=== PATIENT | male | born 1965 | race Caucasian/White ===

== ENCOUNTER 2016-08-31 05:30 | Inpatient (IN) | payer OTHER ==
[~2016-08-31] VITALS: Ht 170.2 cm; Wt 94.9 kg
[2016-08-31] MEDS ORDERED: NS IV 1000 ML 1,000 ML IV ONE (06:12)
[2016-08-31] MEDS ORDERED: KETOROLAC 30 MG/ML VIAL IVP ONE (06:30)
[2016-08-31] MEDS ORDERED: PIPERACILLIN SODIUM/TAZOBACTAM 4.5 GM in NS (IVPB) 100 ML IV ONE (06:30)
[2016-08-31] MEDS ORDERED: VANCOMYCIN INJECTION 1,000 MG in NS (IVPB) 250 ML IV ONE (06:30)
[2016-08-31 06:31] LABS: BASOPHILS # (AUTO) 0.1 10^3/uL (0.0-0.1); BASOPHILS % (AUTO) 1 % (0-10); EOSINOPHILS # (AUTO) 0.4 10^3/uL (0.0-0.3); EOSINOPHILS % (AUTO) 2 % (0-10); LYMPHOCYTES # (AUTO) 1.6 X 10^3 (1.0-4.0); LYMPHOCYTES % (AUTO) 9 % (12-44); MEAN CORPUSCULAR HEMOGLOBIN 30 PG (25-34); MEAN CORPUSCULAR HGB CONC 34 G/DL (32-36); MEAN CORPUSCULAR VOLUME 90 FL (80-99); MEAN PLATELET VOLUME 9.1 FL (7.4-10.4); MONOCYTES # (AUTO) 2.2 X 10^3 (0.0-1.0); MONOCYTES % (AUTO) 12 % (0-12); NEUTROPHILS # (AUTO) 14.1 X 10^3 (1.8-7.8); NEUTROPHILS % (AUTO) 77 % (42-75); PLATELET COUNT 416 10^3/uL (130-400); RED BLOOD COUNT 4.64 10^6/uL (4.35-5.85); RED CELL DISTRIBUTION WIDTH 14.4 % (10.0-14.5); WHITE BLOOD COUNT 18.3 10^3/uL (4.3-11.0)
--- NOTE | 2016-08-31 06:37 | ED General ---
General Chief Complaint: Skin/Wound Problems Stated Complaint: LEFT ARM SWOLLEN,PAINFUL Nursing Triage Note: Pt reports pain and swelling to R hand and arm starting last night Nursing Sepsis Screen: No Definite Risk Source of Information: Patient Exam Limitations: No Limitations History of Present Illness Time Seen by Provider: 06:10 Initial Comments This 50-year-old man presents to the emergency room with complaints of right and left forearm abscesses after injecting with methamphetamines. In addition his right hand and wrist are markedly edematous, erythematous, and painful. He is afebrile and not tachycardic. He denies any injection into the hand or wrist. He has a large abscess on both the right forearm and left forearm. He denies any other health problems. He has near complete loss of range of motion in his right wrist and hand. He appears to be slightly agitated and still under the influence of methamphetamines. Allergies and Home Medications Allergies Coded Allergies: No Known Drug Allergies (Unverified , 08/31/16) Home Medications No Active Prescriptions or Reported Meds Constitutional: no symptoms reported EENTM: no symptoms reported Respiratory: no symptoms reported Cardiovascular: no symptoms reported Gastrointestinal: no symptoms reported Genitourinary: no symptoms reported Musculoskeletal: see HPI, joint pain, joint swelling Skin: see HPI Psychiatric/Neurological: See HPI Hematologic/Lymphatic: No Symptoms Reported Past Phbpdfb-Ngtgko-Hpuqgc Hx Patient Social History Alcohol Use: Rarely Uses Recreational Drug Use: Yes (meth ) Smoking Status: Current Everyday Smoker Type Used: Cigarettes Recent Foreign Travel: No Contact w/Someone Who Travel: No Recent Infectious Disease Expo: No Recent Hopitalizations: No Seasonal Allergies Seasonal Allergies: No Surgeries HX Surgeries: Yes Surgeries: Gallbladder Respiratory Hx Respiratory Disorders: No Cardiovascular Hx Cardiac Disorders: No Neurological Hx Neurological Disorders: No Reproductive System Hx Reproductive Disorders: No Genitourinary Hx Genitourinary Disorders: No Gastrointestinal Hx Gastrointestinal Disorders: No Musculoskeletal Hx Musculoskeletal Disorders: No Endocrine Hx Endocrine Disorders: No HEENT HX ENT Disorders: No Cancer Hx Cancer: No Psychosocial Hx Psychiatric Problems: No Integumentary HX Skin/Integumentary Disorder: No Blood Transfusions Hx Blood Disorders: No Physical Exam Vital Signs Vital Sign - Last 12Hours 08/31/16 05:52 Temp 98.0 Pulse 88 Resp 18 B/P (MAP) 0/0 Pulse Ox 99 O2 Delivery Room Air Capillary Refill : Less Than 3 Seconds General Appearance: WD/WN, Mild Distress HEENT: PERRL/EOMI, Normal ENT Inspection Neck: Normal Inspection Respiratory: Lungs Clear, Normal Breath Sounds, No Accessory Muscle Use, No Respiratory Distress Cardiovascular: Regular Rate, Rhythm, No Edema, No Murmur Gastrointestinal: Non Tender, Soft Extremity: Other (large abscesses on both forearms. Right hand and wrist are markedly edematous, erythematous, and tender. There is substantial loss of range of motion in the right wrist and hand. He retains sensation and brisk capillary refill in his fingers. 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 Patient was pretreated with IV fentanyl. A 1 cm incision was made over the right forearm abscess. A significant amount of purulent material was expressed. A small quarter-inch wick of packing was placed. Drainage was sent for culture. I&D #2: Blade Size: 11 Progress Left forearm abscess was prepped with chlorhexidine wipes. Patient was pretreated with IV fentanyl. A new 1.5 cm incision was made over the abscess. A scant amount of watery but purulent drainage was expressed. Culture was collected. Wound was dressed. Progress/Results/Core Measures Results/Orders Lab Results Laboratory Tests Test 08/31/16 10:20 09/01/16 06:43 Range/Units Urine Color YELLOW Urine Clarity CLEAR Urine pH 5 5-9 Urine Specific [place] 1.015 L 1.016-1.022 Urine Protein NEGATIVE NEGATIVE Urine Glucose (UA) NEGATIVE NEGATIVE Urine Ketones NEGATIVE NEGATIVE Urine Nitrite NEGATIVE NEGATIVE Urine Bilirubin NEGATIVE NEGATIVE Urine Urobilinogen NORMAL NORMAL MG/DL Urine Leukocyte Esterase NEGATIVE NEGATIVE Urine RBC (Auto) NEGATIVE NEGATIVE Urine Opiates Screen NEGATIVE NEGATIVE Urine Oxycodone Screen NEGATIVE NEGATIVE Urine Methadone Screen NEGATIVE NEGATIVE Urine Propoxyphene Screen NEGATIVE NEGATIVE Urine Barbiturates Screen NEGATIVE NEGATIVE Ur Tricyclic Antidepressants Screen NEGATIVE NEGATIVE Urine Phencyclidine Screen NEGATIVE NEGATIVE Urine Amphetamines Screen POSITIVE H NEGATIVE Urine Methamphetamines Screen POSITIVE H NEGATIVE Urine Benzodiazepines Screen NEGATIVE NEGATIVE Urine Cocaine Screen NEGATIVE NEGATIVE Urine Cannabinoids Screen NEGATIVE NEGATIVE White Blood Count 11.8 H 4.3-11.0 10^3/uL Red Blood Count 4.72 4.35-5.85 10^6/uL Hemoglobin 14.2 13.3-17.7 G/DL Hematocrit 43 40-54 % Mean Corpuscular Volume 92 80-99 FL Mean Corpuscular Hemoglobin 30 25-34 PG Mean Corpuscular Hemoglobin Concent 33 32-36 G/DL Red Cell Distribution Width 13.3 10.0-14.5 % Platelet Count 363 130-400 10^3/uL Mean Platelet Volume 9.3 7.4-10.4 FL Neutrophils (%) (Auto) 71 42-75 % Lymphocytes (%) (Auto) 14 12-44 % Monocytes (%) (Auto) 12 0-12 % Eosinophils (%) (Auto) 3 0-10 % Basophils (%) (Auto) 1 0-10 % Neutrophils # (Auto) 8.3 H 1.8-7.8 X 10^3 Lymphocytes # (Auto) 1.7 1.0-4.0 X 10^3 Monocytes # (Auto) 1.4 H 0.0-1.0 X 10^3 Eosinophils # (Auto) 0.3 0.0-0.3 10^3/uL Basophils # (Auto) 0.1 0.0-0.1 10^3/uL Sodium Level 137 135-145 MMOL/L Potassium Level 4.0 3.6-5.0 MMOL/L Chloride Level 106 98-107 MMOL/L Carbon Dioxide Level 23 21-32 MMOL/L Anion Gap 8 5-14 MMOL/L Blood Urea Nitrogen 7 7-18 MG/DL Creatinine 0.72 0.60-1.30 MG/DL Estimat Glomerular Filtration Rate > 60 BUN/Creatinine Ratio 10 Glucose Level 105 70-105 MG/DL Calcium Level 8.4 L 8.5-10.1 MG/DL Total Bilirubin 0.7 0.1-1.0 MG/DL Aspartate Amino Transf (AST/SGOT) 22 5-34 U/L Alanine Aminotransferase (ALT/SGPT) 23 0-55 U/L Alkaline Phosphatase 125 40-136 U/L Total Protein 6.6 6.4-8.2 G/DL Albumin 3.4 3.2-4.5 G/DL Micro Results Microbiology 08/31/16 Gram Stain - Final, Resulted 08/31/16 Wound Culture - Preliminary, Resulted 08/31/16 Gram Stain - Final, Resulted 08/31/16 Wound Culture - Preliminary, Resulted My Orders Orders - ANUP QUINN MD Wound Culture (08/31/16 07:54) Wound Culture (08/31/16 07:54) Iohexol Injection (Omnipaque 350 Mg/Ml 1 (08/31/16 08:15) Ns (Ivpb) (Sodium Chloride 0.9% Ivpb Bag (08/31/16 08:15) Piperacillin Sodium/Tazobactam (Zosyn Vi (08/31/16 09:03) Medications Given in ED Vital Signs/I&O Blood Pressure Mean: 0 Progress Note : Time: 06:43 Progress Note Patient has been seen and examined. Vancomycin and Zosyn will be started after blood cultures are completed by lab. Toradol was ordered for pain. IV fluids will be administered along with antibiotics. After review of creatinine, I plan to order a CT scan of the right upper extremity to rule out further abscesses in the hand and wrist. Abscesses on the forearms will need incision and drainage. Diagnostic Imaging Diagonstic Imaging: CT Plain Films/CT/US/NM/MRI: other (Right upper extremity) Comments CT of the right upper extremity viewed by me and report reviewed. See report below: NAME: WILY FERNANDES [facility] REC#: [id number] PT STATUS: REG ER : 1965 PHYSICIAN: ANUP QUINN MD ADMIT DATE: 08/31/16/ER Draft Date of Exam:08/31/16 CT EXTREMITY UPPER RIGHT W PROCEDURE: CT right upper extremity with contrast. TECHNIQUE: Axial images were obtained through the right upper extremity after intravenous contrast and reformatted into coronal and sagittal oblique planes. INDICATION: Right hand and arm swelling. No known injury. COMPARISON: None available. FINDINGS: The right subclavian, axillary, brachial, radial and ulnar arteries are patent. The venous structure patency cannot be assessed on this examination to the base of contrast bolus timing. Ultrasound would be better suited to evaluate the venous structures. There is no fracture. No osseous erosive changes/cortical destruction to suggest osteomyelitis by CT. Please note that CT is insensitive for early changes of osteomyelitis. At the level of the proximal one third of the forearm, there is a subcutaneous low-attenuation lesion measuring 1.0 x 1.9 cm in the radial soft tissues. Underlying musculature is normal in attenuation. There is diffuse non-masslike subcutaneous edema and swelling involving the dorsal aspect of the hand and wrist. There are a few mildly enlarged right axillary lymph nodes, largest measuring 2.0 x 1.5 cm, which are likely reactive in nature. Visualized aspects of the right lung are clear. IMPRESSION: 1. There is nonspecific soft tissue swelling and subcutaneous edema in the dorsal aspect of the hand and wrist. In addition in the proximal radial aspect of the forearm, there is a focal subcutaneous ovoid hypodense lesion which could represent fluid collection. These findings are nonspecific and are likely due to an infectious or inflammatory process. Targeted ultrasound of the hypoechoic focus in the proximal forearm could be performed to assess if this has fluid within it and may be amenable to drainage. 2. No CT findings of osteomyelitis. In the absence of open dermal wound, osteomyelitis is extremely rare in adult patients. However, if there is high clinical suspicion for osteomyelitis, a focal MRI in the region of open dermal wound is suggested as it is more sensitive to evaluate early changes of osteomyelitis. 3. A few mildly enlarged right axillary lymph nodes are likely reactive in nature. Dictated on workstation # [id number] Dict: 08/31/16 0812 Trans: 08/31/16 0824 [facility] [id number] Interpreted by: LENARD CHAVES MD Departure Communication Time/Spoke to Admitting Phy: 08:[address] Curran was notified of admission. She agrees with vancomycin and Zosyn. She also agrees with surgical consult. Time/Spoke to Consulting Physi: 08:45 Communication/Consulting Dr. Cardenas was notified and case reviewed. He is agreeable to consultation. Patient is at high risk for compartment syndrome and should be monitored by a surgeon. Impression Impression: Primary Impression: Cellulitis of right upper extremity Additional Impressions: Cellulitis of left upper extremity Abscess of right upper extremity Abscess of left upper extremity Methamphetamine abuse Disposition: ADMITTED INPATIENT Condition: Improved Decision to Admit Reason: Admit from ER (General) Decision to Admit/Date: Aug 31, 2016 Time/Decision to Admit Time: 06:20 Departure-Patient Inst. Referrals: NO,LOCAL PHYSICIAN (PCP/Family) Primary Care Physician Scripts No Active Prescriptions or Reported Meds ANUP QUINN MD Aug 31, 2016 06:37
[2016-08-31 06:45] LABS: ANISOCYTOSIS SLIGHT; BAND NEUTROPHILS 0 %; BASOPHILS % (MANUAL) 1 %; EOSINOPHILS % (MANUAL) 3 %; LYMPHOCYTES % (MANUAL) 8 %; NEUTROPHILS % (MANUAL) 80 %
[2016-08-31] MEDS ORDERED: fentaNYL INJECTION 100 MCG/2 ML AMP IVP ONE (07:00)
[2016-08-31 07:03] LABS: ALANINE AMINOTRANSFERASE 20 U/L (0-55); ALBUMIN 3.7 G/DL (3.2-4.5); ANION GAP 11 MMOL/L (5-14); ASPARTATE AMINO TRANSFERASE 15 U/L (5-34); BILIRUBIN,TOTAL 0.3 MG/DL (0.1-1.0); BLOOD UREA NITROGEN 18 MG/DL (7-18); BUN/CREATININE RATIO 23; CALCIUM 8.8 MG/DL (8.5-10.1); CARBON DIOXIDE 21 MMOL/L (21-32); CHLORIDE 103 MMOL/L (98-107); CREATININE SERUM 0.79 MG/DL (0.60-1.30); GFR ESTIMATED > 60; GLUCOSE 126 MG/DL (70-105); POTASSIUM 3.7 MMOL/L (3.6-5.0); SODIUM 135 MMOL/L (135-145); TOTAL PROTEIN 6.9 G/DL (6.4-8.2); hs C REACTIVE PROTEIN 0.62 MG/DL (0.00-0.50)
[2016-08-31] MEDS ORDERED: NS 100 ML (IVPB) BAG IV ONE (08:15)
[2016-08-31] MEDS ORDERED: IOHEXOL 350 MG/ML 150 ML (OMNIPAQUE 350) VIAL IV ONE (08:15)
--- NOTE | 2016-08-31 08:25 | Diagnostic Imaging Report ---
PROCEDURE: CT right upper extremity with contrast. TECHNIQUE: Axial images were obtained through the right upper extremity after intravenous contrast and reformatted into coronal and sagittal oblique planes. INDICATION: Right hand and arm swelling. No known injury. COMPARISON: None available. FINDINGS: The right subclavian, axillary, brachial, radial and ulnar arteries are patent. The venous structure patency cannot be assessed on this examination to the base of contrast bolus timing. Ultrasound would be better suited to evaluate the venous structures. There is no fracture. No osseous erosive changes/cortical destruction to suggest osteomyelitis by CT. Please note that CT is insensitive for early changes of osteomyelitis. At the level of the proximal one third of the forearm, there is a subcutaneous low-attenuation lesion measuring 1.0 x 1.9 cm in the radial soft tissues. Underlying musculature is normal in attenuation. There is diffuse non-masslike subcutaneous edema and swelling involving the dorsal aspect of the hand and wrist. There are a few mildly enlarged right axillary lymph nodes, largest measuring 2.0 x 1.5 cm, which are likely reactive in nature. Visualized aspects of the right lung are clear. IMPRESSION: 1. There is nonspecific soft tissue swelling and subcutaneous edema in the dorsal aspect of the hand and wrist. In addition in the proximal radial aspect of the forearm, there is a focal subcutaneous ovoid hypodense lesion which could represent fluid collection. These findings are nonspecific and are likely due to an infectious or inflammatory process. Targeted ultrasound of the hypoechoic focus in the proximal forearm could be performed to assess if this has fluid within it and may be amenable to drainage. 2. No CT findings of osteomyelitis. In the absence of open dermal wound, osteomyelitis is extremely rare in adult patients. However, if there is high clinical suspicion for osteomyelitis, a focal MRI in the region of open dermal wound is suggested as it is more sensitive to evaluate early changes of osteomyelitis. 3. A few mildly enlarged right axillary lymph nodes are likely reactive in nature. Dictated by: Dictated on workstation # [id number]
[2016-08-31] MEDS ORDERED: PIPERACILLIN/TAZO 4.5 GM VIAL (ZOSYN) IV ONE (09:03)
[2016-08-31 10:07] VITALS: BP 124/82
[2016-08-31 10:28] LABS: BILIRUBIN,URINE NEGATIVE (NEGATIVE); KETONES,URINE NEGATIVE (NEGATIVE); LEUKOCYTE ESTERASE ,URINE NEGATIVE (NEGATIVE); NITRITE,URINE NEGATIVE (NEGATIVE); PH,URINE 5 (5-9); PROTEIN,URINE NEGATIVE (NEGATIVE); UROBILINOGEN,URINE NORMAL (NORMAL)
[2016-08-31 11:03] VITALS: BP 141/72
--- NOTE | 2016-08-31 11:19 | History & Physical-Hospitalist ---
HPI History of Present Illness: HPI/Chief Complaint this is a 50-year-old white male who presents to the emergency room with complaints of right arm pain. Has long-standing history of methamphetamine use and injections. He is found to have a markedly swollen right arm with near compartment syndrome. He has pain with movement of his hand. culture has been obtained. he has an elevated white count and he is admitted for surgical consultation and IV antibiotics. currently the patient is very somnolent after an injection of pain medication and does not provide any additional history. Source: old records Exam Limitations: clinical condition Date Seen 08/31/16 Attending Physician Lorie Galeano MD PCP No,Local Physician Referring Physician Date of Admission Aug 31, 2016 at 08:55 Home Medications & Allergies Home Medications Reviewed patient Home Medication Reconciliation Form Allergies Allergies Coded Allergies No Known Drug Allergies (Unverified08/31/16) Past Lnlqtmo-Nrjhbz-Xwbjnk Hx Patient Social History Alcohol Use: Rarely Uses Recreational Drug Use: Yes (meth ) Smoking Status: Current Everyday Smoker Type Used: Cigarettes Physical Abuse Screen: No Sexual Abuse: No Recent Foreign Travel: No Contact w/other who traveled: No Recent Hopitalizations: No Recent Infectious Disease Expo: No Seasonal Allergies Seasonal Allergies: No Surgeries HX Surgeries: Yes Surgeries: Gallbladder Respiratory Hx Respiratory Disorders: No Cardiovascular Hx Cardiovascular Disorders: No Neurological Hx Neurological Disorders: No Reproductive System Hx Reproductive Disorders: No Genitourinary Hx Genitourinary Disorders: No Gastrointestinal Hx Gastrointestinal Disorders: No Musculoskeletal Hx Musculoskeletal Disorders: No Endocrine Hx Endocrine Disorders: No HEENT HX ENT Disorders: No Cancer Hx Cancer: No Psychosocial Hx Psychiatric Problems: No Behavioral Health Disorders: Depression Integumentary HX Skin/Integumentary Disorder: No Skin/Integumentary Disorders: Recent Skin Changes Blood Transfusions Hx Blood Disorders: No Family Medical History Family Hx: Cardiovascular disease 19 FATHER 19 MOTHER Diabetes mellitus G8 BROTHER Review of Systems Constitutional: no symptoms reported EENTM: see HPI Physical Exam Physical Exam Vital Signs Vital Sign - Last 12Hours 08/31/16 05:52 Temp 98.0 Pulse 88 Resp 18 B/P (MAP) 0/0 Pulse Ox 99 O2 Delivery Room Air Capillary Refill : Less Than 3 Seconds General Appearance: Other (somnolent unkept) Respiratory: Lungs Clear Cardiovascular: Regular Rate, Rhythm Gastrointestinal: Soft Extremity: Inflammation, Swelling, Other (multiple abscesses and very very tight right hand and right arm) Neurologic/Psychiatric: Other (on the left) Skin: Normal Color, Warm/Dry Results Results/Procedures Lab Laboratory Tests 08/31/16 06:22 Assessment/Plan Admission Diagnosis 1. cellulitis and abscess. concerned for compartment syndrome- consult surgery and continue IV antibiotics. 2. Methamphetamine abuse Clinical Quality Measures DVT/VTE Risk/Contraindication: Risk Factor Score Per Nursin RFS Level Per Nursing on Admit: 3=High LORIE GALEANO MD Aug 31, 2016 11:19
[2016-08-31] MEDS: NS IV 1000 ML 1,000 ML IV SCH ×2 (11:23→21:51)
[2016-08-31] MEDS: ENOXAPARIN 40 MG/0.4 ML (LOVENOX) SYR SC SCH (11:23)
[2016-08-31 12:00] VITALS: BP 140/84
--- NOTE | 2016-08-31 12:57 | Progress Note-Standard ---
Standard Progress Note Progress Notes/Assess & Plan Progress/Assessment & Plan 08/31/16:gentleman with methamphetamine dependency admitted with cellulitis and superficial abscesses over both forearms. These have been drained by the ER physician. On examination, he is rather somnolent. Nonpitting edema is seen over the dorsum of the right hand. He is able to flex his fingers. We will continue IV antibiotics. Final Diagnosis methamphetamine dependency. Cellulitis of both upper extremities with abscess formation JENNIFER CARRILLO MD Aug 31, 2016 12:56 pm
[2016-08-31 13:00] VITALS: BP 137/64
[2016-08-31] MEDS: VANCOMYCIN 1 GM/NS 250 ML IVPB IV SCH ×4 (13:51→21:52)
[2016-08-31] MEDS ORDERED: KETOROLAC 30 MG/ML VIAL IV PRN (14:30)
[2016-08-31] MEDS: PIPERACILLIN/TAZOBACTAM 4.5 GM/NS100 ML IVPB IV SCH ×2 (15:11)
[2016-08-31 16:05] VITALS: BP 120/61
[2016-08-31 20:17] VITALS: BP 135/84
[2016-09-01 00:25] VITALS: BP 120/60
[2016-09-01] MEDS: PIPERACILLIN/TAZOBACTAM 4.5 GM/NS100 ML IVPB IV SCH ×4 (00:37→07:44)
[2016-09-01 04:14] VITALS: BP 123/67
[2016-09-01] MEDS: VANCOMYCIN 1 GM/NS 250 ML IVPB IV SCH ×2 (05:58)
[2016-09-01 07:02] LABS: BASOPHILS # (AUTO) 0.1 10^3/uL (0.0-0.1); BASOPHILS % (AUTO) 1 % (0-10); EOSINOPHILS # (AUTO) 0.3 10^3/uL (0.0-0.3); EOSINOPHILS % (AUTO) 3 % (0-10); LYMPHOCYTES # (AUTO) 1.7 X 10^3 (1.0-4.0); LYMPHOCYTES % (AUTO) 14 % (12-44); MEAN CORPUSCULAR HEMOGLOBIN 30 PG (25-34); MEAN CORPUSCULAR HGB CONC 33 G/DL (32-36); MEAN CORPUSCULAR VOLUME 92 FL (80-99); MEAN PLATELET VOLUME 9.3 FL (7.4-10.4); MONOCYTES # (AUTO) 1.4 X 10^3 (0.0-1.0); MONOCYTES % (AUTO) 12 % (0-12); NEUTROPHILS # (AUTO) 8.3 X 10^3 (1.8-7.8); NEUTROPHILS % (AUTO) 71 % (42-75); PLATELET COUNT 363 10^3/uL (130-400); RED BLOOD COUNT 4.72 10^6/uL (4.35-5.85); RED CELL DISTRIBUTION WIDTH 13.3 % (10.0-14.5); WHITE BLOOD COUNT 11.8 10^3/uL (4.3-11.0)
[2016-09-01 07:34] LABS: ALANINE AMINOTRANSFERASE 23 U/L (0-55); ALBUMIN 3.4 G/DL (3.2-4.5); ANION GAP 8 MMOL/L (5-14); ASPARTATE AMINO TRANSFERASE 22 U/L (5-34); BILIRUBIN,TOTAL 0.7 MG/DL (0.1-1.0); BLOOD UREA NITROGEN 7 MG/DL (7-18); BUN/CREATININE RATIO 10; CALCIUM 8.4 MG/DL (8.5-10.1); CARBON DIOXIDE 23 MMOL/L (21-32); CHLORIDE 106 MMOL/L (98-107); CREATININE SERUM 0.72 MG/DL (0.60-1.30); GFR ESTIMATED > 60; GLUCOSE 105 MG/DL (70-105); SODIUM 137 MMOL/L (135-145); TOTAL PROTEIN 6.6 G/DL (6.4-8.2)
[2016-09-01 08:00] VITALS: BP 142/86
[2016-09-01] MEDS: NS IV 1000 ML 1,000 ML IV SCH (08:20)
[2016-09-01] MEDS: ENOXAPARIN 40 MG/0.4 ML (LOVENOX) SYR SC SCH (10:18)
--- NOTE | 2016-09-01 11:44 | Progress Note-Standard ---
Standard Progress Note Progress Notes/Assess & Plan Progress/Assessment & Plan 08/31/16:gentleman with methamphetamine dependency admitted with cellulitis and superficial abscesses over both forearms. These have been drained by the ER physician. On examination, he is rather somnolent. Nonpitting edema is seen over the dorsum of the right hand. He is able to flex his fingers. We will continue IV antibiotics. 09/01/16:superficial abscess over the right forearm inspected and found to be adequately drained. He has more erythema and swelling over the dorsum of his right hand and I have encouraged him to stay longer. He has expressed a strong desire to go home AGAINST MEDICAL ADVICE Final Diagnosis abscess of right forearm. Methamphetamine use JENNIFER CARRILLO MD Sep 01, 2016 11:44 am
[2016-09-01] MEDS ORDERED: TROUGH ORDER-PHARMACY XX NR (13:00)
== END 2016-09-01 11:25 | disposition left against medical advice (07) | DRG 603 ==
LOC: EDUNIT# 05:30 → ER 05:33 → 4TH 08:55
PROVIDERS: ADMIT Internal Medicine; ATTEND Internal Medicine
PROC: 0X9 Anatomical Regions, Upper Extremities, Drainage (ICD-10-PCS; principal; 2016-08-31)
PROC: 0X9 Anatomical Regions, Upper Extremities, Drainage (ICD-10-PCS; 2016-08-31)
DX: L03.113 Cellulitis of right upper limb (principal); L03.114 Cellulitis of left upper limb; F15.10 Other stimulant abuse, uncomplicated; F17.210 Nicotine dependence, cigarettes, uncomplicated
CPT/HCPCS: 10061; 36415; 73201; 80053; 80306; 81002; 83605; 85007; 85025; 85027; 86141; 87040; 87070; 87205; 96361; 96365; 96367; 96375

== ENCOUNTER 2022-03-11 00:39 | Emergency (ER) | payer SELFPAY ==
[~2022-03-11] VITALS: Ht 170 cm; Wt 128.0 kg
[2022-03-11] MEDS ORDERED: RX-TRIMETH/SULFA. 160-800 MG (BACTRIM DS) TAB PPK#2 PO STA (01:00)
[2022-03-11] MEDS ORDERED: RX-NAPROXEN (NAPROSYN) 250 MG TAB PPK#4 PO STA (01:00)
[2022-03-11] MEDS ORDERED: ceFAZolin INJECTION 1,000 MG VIAL IM ONE (01:00)
[2022-03-11] MEDS ORDERED: NAPR500T8 PO (01:04)
[2022-03-11] MEDS ORDERED: SULF1TAB38 PO (01:04)
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
[2022-03-11] MEDS ORDERED: TETANUS,DIPTH,PERTUSS P/F (BOOSTRIX) 0.5 ML VIAL IM ONE (01:15)
[2022-03-11] MEDS ORDERED: WATER (STERILE) FOR INJ 10 ML BTL IJ ONE (01:15)
[2022-03-11 01:31] VITALS: BP 153/96
== END 2022-03-11 01:32 | disposition home or self-care (01) ==
LOC: EDUNIT# 00:39 → ER 00:43
DX: L03.221 Cellulitis of neck (principal); L02.11 Cutaneous abscess of neck; E66.9 Obesity, unspecified; F17.210 Nicotine dependence, cigarettes, uncomplicated
CPT/HCPCS: 90715; 99284